=== PATIENT | female | born 1965 | race Caucasian/White ===

== ENCOUNTER → 2018-06-16 12:07 | Outpatient (CLI) | payer OTHER, BC, SELFPAY ==
--- NOTE | 2018-06-16 12:10 | BI_ITS ---
MAMMOGRAPHY - BILATERAL SCREENING REASON FOR EXAM: Female, 52 years old. Routine annual screening examination. PERTINENT HISTORY: Grandmother with breast cancer. TECHNIQUE: Digital bilateral breast ro (3D mammographic acquisition) in the CC and MLO projections. 2-D mediolateral oblique (MLO) and craniocaudad (CC) views of both breasts were obtained. CAD: Full Field Digital Mammography with Computer Added Detection was performed. COMPARISON: Comparison is made with prior examination dated September 16, 2016 and June 05, 2013. FINDINGS: Breast Composition: There are scattered areas of fibroglandular density. There are no dominant masses or suspicious calcifications. No other significant abnormalities are identified. There has been no significant change since the prior study. BI/SCREENING MAMM (CAD), BILAT IMPRESSION: Stable bilateral screening mammogram. Yearly follow-up mammogram recommended. (A) ASSESSMENT CATEGORY: BIRADS Category 1: Negative. A letter regarding these results will be sent to the patient by the facility within 30 days. Approximately 10% of breast cancers are not detected by mammography. A normal mammogram should not delay biopsy of a clinically suspicious abnormality. [id number] Electronically Signed: Sebas Cuellar MD at 14:09 EST Tel [phone], Service support ,
== END ==
PROVIDERS: Visit Provider Obstetrics & Gynecology
DX: Z12.31 Encounter for screening mammogram for malignant neoplasm of breast (principal)
CPT/HCPCS: 77063; 77067

== ENCOUNTER → 2018-07-20 16:09 | Outpatient (CLI) | payer OTHER, SELFPAY ==
[2018-07-20 17:45] LABS: Free T3 2.1 pg/mL (2.18-3.98); T4 Free Direct 0.94 ng/dL (0.76-1.46); Thyroid Stim Hormone (TSH) 2.61 uIU/mL (0.358-3.74)
== END ==
PROVIDERS: Family Provider Family Medicine; PCP Family Medicine; Referring Provider Obstetrics & Gynecology; Visit Provider Obstetrics & Gynecology
DX: F41.1 Generalized anxiety disorder (principal); E07.89 Other specified disorders of thyroid
CPT/HCPCS: 36415; 84439; 84443; 84481

== ENCOUNTER 2019-08-24 09:30 | Outpatient (RCR) | payer OTHER, SELFPAY ==
--- NOTE | 2019-08-02 11:45 | HP.PTEVAL ---
Patient's Visit Information SALAZAR HUSTON is a 53 year old F referred to Physical Therapy by Lee Le MD with a diagnosis of Left Plantar Fascitis. Date of Evaluation: 08/02/19 Physical Therapist: Lori Gambino DPT - Visit Plan Frequency: 2x /Week Duration: 4 Weeks Plan: Focus on decreasing inflammation- add in eccentrics and stretching - Subjective Findings: Left plantar fascitis- it has been years more in the arch and she was able to deal with it- good shoes and inserts. After March the pain moved to the heel and is pretty much constant now. She does not usually wake up with pain- does not wear night splints but she uses the footboard of her bed. Wednesday she took the dog for a walk then she was done for the day. Pain is located in the heel and if she exercises then get stiffness in the achilles tendon and lower calf- rolls it out and it helps. Does not have any arch pain. Describes the pain as sharp and shooting in the heel. Worst: 8/10 Agg: being up on it, being active, standing. Eases: roller, rest. Best: 0/10 in the morning when she gets up- depending on what she did the day before. No N/T. Does have hip pain on the right side- based on activtiy level but no changes. Most of the time she is an [employer]- over the counter inserts. Dr. Le sent her to [facility]- is using a heel cup and that makes it better a little bit. Was diagnosed with a high arch by the person at [facility]. Athletic shoe is a [employer]- but also wears the inserts. 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 Has not had injections in her foot. Was given a steriod dose pack for a sinus infection and it made her feel better. PMHx: none Meds: anxiety med PRN- thinks its effexor - Objective Posture: FH, RS- can correct but does not maintain. Gait: no deviation noted- good heel/toe pattern- does have a slightly high arch. HR/TR: able with pain using TR. SLS: 15 sec no LOB. Observation: high arch- mild hindfoot valgus. ROM: DF: 8 degrees, PF: 60 degrees, Ever: 40 degrees, Inver: 30 degrees. Strength: 5/5 throughout LE. Flex: HS: moderate, Gastroc: severe, SOlues: moderate. Palpation: tender along heel and achilles - Goals Goal 1:: Patient will be I with HEP and progression Goal Time Frame: 4-6 Weeks Goal 2:: Patient will demo mild restriction in her gastroc/solues complex Goal Time Frame: 4-6 Weeks Goal 3:: Patient will report 0/10 pain with ADL's and recreational activities Goal Time Frame: 4-6 Weeks - Rehabilitation Potential Physical Therapy Diagnosis: Patient presents with hypomobility- she has decreased increased inflammation and decreased flexibiilty in the left LE leading to increased pain with ADL's. Rehabilitation Potential: Fair - Anticipated Interventions Patient/Client Instruction: Educate patient on: Benefits of Fitness Program Therapeutic Exercise to Include: Strength training, Endurance training, Balance training, Agility training, Body mechanics, Flexibilty training, Passive ROM, Active ROM, Dynamic Lumbar Stabilization For the Purpose of:: To improve muscle performance and motor function TENS: Yes Cryotherapy (ice pack, ice massage): Yes Thermo therapy (hot pack): Yes Ultrasound (thermal/non thermal): Yes Thank you for the opportunity to evaluate your patient. For Medicare and Medicare HMO plans, please review the plan of care and approve it. It will need to be FAXED BACK to us at [phone] for Medicare purposes. For Medicare only, by signing this I certify the plan of care. Please let me know if there are questions or concerns regarding this plan of care. Physician Signature: Date:
--- NOTE | 2019-10-17 10:27 | HP.PT.NRP ---
SALAZAR HUSTON was seen in my office for initial evaluation on 08/02/19. The following Plan of Care was established for this patient: Initial Frequency: 2x /Week Initial Duration: 4 Weeks Patient/Client Instruction: Educate patient on: Benefits of Fitness Program Therapeutic Exercise to Include: Strength training, Endurance training, Balance training, Agility training, Body mechanics, Flexibilty training, Passive ROM, Active ROM, Dynamic Lumbar Stabilization For the Purpose of:: To improve muscle performance and motor function TENS: Yes Cryotherapy (ice pack, ice massage): Yes Thermo therapy (hot pack): Yes Ultrasound (thermal/non thermal): Yes This patient was last seen in our office . Pertinent comments regarding their Physical therapy will appear below: Patient attempted HEP and has not called with questions- appropriate for d/c. At this point I will be discontinuing this patient from physical therapy. I would be happy to see this patient again in the future if found appropriate by the physician. Thank you! Lori Gambino DPT
== END 2019-08-24 19:00 | disposition home or self-care (01) ==
LOC: PT 09:30
PROVIDERS: PCP Family Medicine; Referring Provider Orthopaedic Surgery; Visit Provider Orthopaedic Surgery
DX: Q66.72 Congenital pes cavus, left foot (principal); M72.2 Plantar fascial fibromatosis
CPT/HCPCS: 97035; 97110; 97140; 97161

== ENCOUNTER 2020-08-22 14:38 | Outpatient (RCR) | payer OTHER, SELFPAY ==
[2020-08-22] MEDS: COVID-19 VACC, MRNA(PFIZER)/PF 30 MCG/0.3 ML SYRINGE IM (08:34)
[2020-09-12] MEDS: COVID-19 VACC, MRNA(PFIZER)/PF 30 MCG/0.3 ML SYRINGE IM (08:27)
== END 2020-08-22 23:59 ==
LOC: IMMUN 14:38
PROVIDERS: PCP Family Medicine; Visit Provider Family Medicine
DX: Z23 Encounter for immunization (principal)
CPT/HCPCS: 0001A; 0002A; 91300

== ENCOUNTER → 2020-09-27 11:42 | Outpatient (CLI) | payer OTHER, SELFPAY ==
[2020-09-27 12:41] LABS: Absolute Lymphocyte Count 2.09 X10^3/uL (0.83-4.51); Absolute Neutrophil Count 2.8 X10^3/uL (2.0-7.7); Basophil# 0.03 X10^3/uL; Basophil% 0.5 % (0-1); Eosinophil# 0.06 X10^3/uL; Eosinophils% 1.1 % (0-5); Hematocrit 46.6 % (37-47); Hemoglobin 14.6 g/dL (12.0-15.0); Lymphocyte # 2.09 X10^3/ul (0.83-4.51); Lymphocyte % 37.5 % (19-41); Mean Corp Hgb Conc 31.3 g/dL (32-36); Mean Corpuscular Volume 95.9 fL (81-99); Mean Platelet Vol. 10.9 fl (6.2-12.0); Monocyte# 0.63 X10^3/uL; Monocyte% 11.3 % (0-10); NRBC Flagged by Analyzer 0 % (0-5); Neutrophil # 2.76 X10^3/uL (2.7-7.7); Neutrophil % 49.6 % (47-70); Platelet Count 243 K/mm3 (150-450); RBC Distribution Width CV 13.9 % (11.6-14.6); RBC Distribution Width SD 49.8 fl (35.1-43.9); Red Blood Count 4.86 M/mm3 (4.2-5.4); White Blood Count 5.6 K/mm3 (4.4-11.0)
[2020-09-27 13:42] LABS: ALB/GLOB Ratio 1.1 RATIO (0.9-2.4); AST(SGOT) 15 U/L (15-37); Alanine Aminotransfer ALT/SGPT 20 U/L (13-56); Alkaline Phosphatase 76 U/L (45-117); Anion Gap 4 (5-15); BUN 13 mg/dL (7-18); BUN/Creat Ratio 15.4 RATIO (10-20); Calcium,Total 9.1 mg/dL (8.5-10.1); Chloride 103 mmol/L (98-107); Cholesterol 247 mg/dL (200); Creatinine, Serum 0.85 mg/dL (0.55-1.02); EST Glomerular Filtration Rate 74 mL/min (>60); Est Glom Filt Rate - Afr Amer 90 mL/min (>60); Globulin 3.8 g/dL (2.2-4.2); Glucose 90 mg/dL (74-106); High Density Lipoprotein 77 mg/dL; Potassium 4.1 mmol/L (3.5-5.1); Protein, Total 7.8 g/dL (6.4-8.2); Sodium Level 137 mmol/L (136-145); Thyroid Stim Hormone (TSH) 5.64 uIU/mL (0.358-3.74); Triglycerides 99 mg/dL; Very Low Density Lipoprotein 20 mg/dL (5-40)
== END ==
PROVIDERS: PCP Family Medicine; Referring Provider Family Medicine; Visit Provider Family Medicine
DX: Z00.00 Encounter for general adult medical examination without abnormal findings (principal); F32.9 Major depressive disorder, single episode, unspecified; R53.83 Other fatigue
CPT/HCPCS: 36415; 80053; 80061; 84443; 85025

== ENCOUNTER → 2020-10-15 15:34 | Outpatient (CLI) | payer OTHER, SELFPAY ==
--- NOTE | 2020-10-15 15:36 | BI_ITS ---
MAMMOGRAPHY - BILATERAL SCREENING REASON FOR EXAM: Female, 54 years old. Routine annual screening examination. PERTINENT HISTORY: Grandmother with breast cancer. TECHNIQUE: Digital bilateral breast suzy (3D mammographic acquisition) in the CC and MLO projections. 2-D mediolateral oblique (MLO) and craniocaudad (CC) views of both breasts were obtained. CAD: Full Field Digital Mammography with Computer Added Detection was performed. COMPARISON: Comparison is made with prior study dated 06/16/2018 and 09/16/2016. FINDINGS: Breast Composition: There are scattered areas of fibroglandular density. There are no dominant masses or suspicious calcifications. No other significant abnormalities are identified. There has been no significant change since the prior study. BI/SCRN MAMM (CAD)W/SUZY BILAT IMPRESSION: Stable bilateral screening mammogram. Yearly follow-up mammogram recommended. (A) ASSESSMENT CATEGORY: BIRADS Category 1: Negative. A letter regarding these results will be sent to the patient by the facility within 30 days. Approximately 10% of breast cancers are not detected by mammography. A normal mammogram should not delay biopsy of a clinically suspicious abnormality. [id number] Electronically Signed: Sebas Cuellar MD at 8:33 EDT , Service support ,
--- NOTE | 2020-10-15 15:56 | BD_ITS ---
STUDY: DUAL ENERGY X-RAY ABSORPTIOMETRY / DXA REASON FOR EXAM: Female, 54 years old. 733.00OsteoporosisBONE DENSITY REASON FOR EXAM TECHNIQUE: Bone Mineral Density (BMD) measurements of lumbar spine and bilateral hips were obtained. COMPARISON: None. FINDINGS: Lumbar Spine (L1-L4): g/cm2 (1.277) / T-score (0.8) / Z-score (1.6) Findings are suggestive of normal bone density with a low fracture risk. Left Femur Total: g/cm2 (0.979) / T-score (-0.2) / Z-score (0.4) Left Femoral Neck: g/cm2 (0.963) / T-score (-0.5) / Z-score (0.5) Right Femur Total: g/cm2 (0.955) / T-score (-0.4) / Z-score (0.2) Right Femoral Neck: g/cm2 (0.915) / T-score (-0.9) / Z-score (0.1) BD/Dexa Bone Density Study IMPRESSION: The patient is considered normal as outlined below according to World Anant Organization (WHO) criteria with a low fracture risk. Reference Information: The T-score is the number of standard deviations above or below the standard which is normal for young adults at their peak bone mineral density. The World Health Organization (WHO) interprets the T-scores as follows: Above -1 Normal bone density Between -1 and -2.5 Osteopenia Equal to / or below -2.5 Osteoporosis As a practical clinical guideline, osteopenia may be graded as follows: Mild -1 through -1.5 Moderate -1.6 through -2.0 Severe -2.1 through -2.4 The Z-score is the number of standard deviations above or below age-matched controls. A Z-score of less than -1.5 would be considered abnormal. References: 1. NIH Osteoporosis and Related Bone Diseases www osteo.org 2. International Society for Clinical Densitometry www iscd.org 3. National Osteoporosis Foundation www nof.org Electronically Signed: Sebas Cuellar MD at 14:55 EDT , Service support ,
== END ==
PROVIDERS: PCP Family Medicine; Referring Provider Family Medicine; Visit Provider Family Medicine
DX: N95.1 Menopausal and female climacteric states (principal); Z12.31 Encounter for screening mammogram for malignant neoplasm of breast; Z82.62 Family history of osteoporosis
CPT/HCPCS: 77063; 77067; 77080

== ENCOUNTER → 2020-11-23 10:40 | Outpatient (CLI) | payer OTHER, SELFPAY ==
[2020-11-23 11:35] LABS: T4 Free Direct 1.05 ng/dL (0.76-1.46); Thyroid Stim Hormone (TSH) 3.18 uIU/mL (0.358-3.74)
== END ==
PROVIDERS: PCP Family Medicine; Referring Provider Family Medicine; Visit Provider Family Medicine
DX: E03.9 Hypothyroidism, unspecified (principal)
CPT/HCPCS: 36415; 84439; 84443

== ENCOUNTER → 2021-01-24 11:07 | Outpatient (CLI) | payer OTHER, SELFPAY ==
[2021-01-24 12:06] LABS: T4 Free Direct 1.11 ng/dL (0.76-1.46); Thyroid Stim Hormone (TSH) 1.71 uIU/mL (0.358-3.74)
== END ==
PROVIDERS: PCP Family Medicine; Visit Provider Family Medicine
DX: E03.9 Hypothyroidism, unspecified (principal)
CPT/HCPCS: 36415; 84439; 84443

== ENCOUNTER → 2021-10-17 | Outpatient (CLI) | payer OTHER, SELFPAY ==
--- NOTE | 2021-10-17 08:06 | BI_ITS ---
MAMMOGRAPHY - BILATERAL SCREENING REASON FOR EXAM: Female, 55 years old. Routine annual screening examination. PERTINENT HISTORY: Grandmother with breast cancer. TECHNIQUE: Digital bilateral breast suzy (3D mammographic acquisition) in the CC and MLO projections. 2-D mediolateral oblique (MLO) and craniocaudad (CC) views of both breasts were obtained. CAD: Full Field Digital Mammography with Computer Added Detection was performed. COMPARISON: Comparison is made with prior study dated 10/15/2020 and 06/16/2018. FINDINGS: Breast Composition: There are scattered areas of fibroglandular density. There are no dominant masses or suspicious calcifications. No other significant abnormalities are identified. There has been no significant change since the prior study. BI/SCRN MAMM (CAD)W/SUZY BILAT IMPRESSION: Stable bilateral screening mammogram. Yearly follow-up mammogram recommended. (A) ASSESSMENT CATEGORY: BIRADS Category 1: Negative. A letter regarding these results will be sent to the patient by the facility within 30 days. Approximately 10% of breast cancers are not detected by mammography. A normal mammogram should not delay biopsy of a clinically suspicious abnormality. [id number] Electronically Signed: Sebas Cuellar MD at 8:51 EDT ,
== END | disposition home or self-care (01) ==
LOC: OPBI 08:04
PROVIDERS: PCP Family Medicine; Visit Provider Family Medicine
DX: Z12.31 Encounter for screening mammogram for malignant neoplasm of breast (principal)
CPT/HCPCS: 77063; 77067

== ENCOUNTER → 2022-10-02 | Outpatient (CLI) | payer OTHER, SELFPAY ==
[2022-10-02 12:14] LABS: Absolute Lymphocyte Count 1.23 X10^3/uL (0.83-4.51); Absolute Neutrophil Count 2.1 X10^3/uL (2.0-7.7); Basophil# 0.04 X10^3/uL; Eosinophil# 0.06 X10^3/uL; Eosinophils% 1.5 % (0-5); Hematocrit 40.2 % (37-47); Hemoglobin 12.4 g/dL (12.0-15.0); Lymphocyte # 1.23 X10^3/ul (0.83-4.51); Lymphocyte % 31.6 % (19-41); Mean Corp Hgb Conc 30.8 g/dL (32-36); Mean Corpuscular Hgb 27.2 pg (27.0-32.0); Mean Corpuscular Volume 88.2 fL (81-99); Mean Platelet Vol. 11.5 fl (6.2-12.0); Monocyte# 0.48 X10^3/uL; Monocyte% 12.3 % (0-10); NRBC Flagged by Analyzer 0 % (0-5); Neutrophil # 2.07 X10^3/uL (2.7-7.7); Neutrophil % 53.3 % (47-70); Platelet Count 230 K/mm3 (150-450); RBC Distribution Width CV 15.8 % (11.6-14.6); Red Blood Count 4.56 M/mm3 (4.2-5.4); White Blood Count 3.9 K/mm3 (4.4-11.0)
[2022-10-02 12:37] LABS: Vitamin D,25 Hydroxy 34.8 ng/mL
[2022-10-02 12:49] LABS: AST(SGOT) 20 U/L (15-37); Alanine Aminotransfer ALT/SGPT 26 U/L (13-56); Albumin, Serum 3.9 g/dL (3.2-5.0); Alkaline Phosphatase 83 U/L (45-117); Anion Gap 2 (5-15); BUN 14 mg/dL (7-18); BUN/Creat Ratio 14.4 RATIO (10-20); Calcium,Total 9.1 mg/dL (8.5-10.1); Chloride 106 mmol/L (98-107); Cholesterol 211 mg/dL (200); Creatinine, Serum 0.97 mg/dL (0.55-1.02); EST Glomerular Filtration Rate 63 mL/min (>60); Est Glom Filt Rate - Afr Amer 76 mL/min (>60); Ferritin 5 ng/mL (8-252); Globulin 3.9 g/dL (2.2-4.2); Glucose 85 mg/dL (74-106); High Density Lipoprotein 76 mg/dL; Potassium 4.4 mmol/L (3.5-5.1); Protein, Total 7.8 g/dL (6.4-8.2); Sodium Level 137 mmol/L (136-145); Thyroid Stim Hormone (TSH) 1.66 uIU/mL (0.358-3.74); Triglycerides 65 mg/dL; Very Low Density Lipoprotein 13 mg/dL (5-40)
== END | disposition home or self-care (01) ==
LOC: BFHLAB 09:25
PROVIDERS: PCP Family Medicine; Referring Provider Family Medicine; Visit Provider Family Medicine
DX: Z00.00 Encounter for general adult medical examination without abnormal findings (principal); E03.9 Hypothyroidism, unspecified; D64.9 Anemia, unspecified; E55.9 Vitamin D deficiency, unspecified
CPT/HCPCS: 36415; 80053; 80061; 82306; 82728; 84443; 85025

== ENCOUNTER → 2022-10-20 | Outpatient (CLI) | payer OTHER, SELFPAY ==
--- NOTE | 2022-10-20 10:06 | BI_ITS ---
MAMMOGRAPHY - BILATERAL SCREENING REASON FOR EXAM: Female, 56 years old. Routine annual screening examination. PERTINENT HISTORY: Grandmother with breast cancer. TECHNIQUE: Digital bilateral breast suzy (3D mammographic acquisition) in the CC and MLO projections. 2-D mediolateral oblique (MLO) and craniocaudad (CC) views of both breasts were obtained. CAD: Full Field Digital Mammography with Computer Added Detection was performed. COMPARISON: Comparison is made with prior examination dated October 17, 2021 and October 15, 2020. FINDINGS: Breast Composition: There are scattered areas of fibroglandular density. There are no dominant masses or suspicious calcifications. No other significant abnormalities are identified. There has been no significant change since the prior study. BI/SCRN MAMM (CAD)W/SUZY BILAT IMPRESSION: Stable bilateral screening mammogram. Yearly follow-up mammogram recommended. (A) ASSESSMENT CATEGORY: BIRADS Category 1: Negative. A letter regarding these results will be sent to the patient by the facility within 30 days. Approximately 10% of breast cancers are not detected by mammography. A normal mammogram should not delay biopsy of a clinically suspicious abnormality. [id number] Electronically Signed: Sebas Cuellar MD at 11:03 EDT ,
== END | disposition home or self-care (01) ==
LOC: OPBI 10:05
PROVIDERS: PCP Family Medicine; Referring Provider Family Medicine; Visit Provider Family Medicine
DX: Z12.31 Encounter for screening mammogram for malignant neoplasm of breast (principal)
CPT/HCPCS: 77063; 77067

== ENCOUNTER 2022-10-30 07:10 | Day surgery (SDC) | payer OTHER, SELFPAY ==
[2022-10-30] VITALS (7 sets, daily range): BP systolic 97–117; BP diastolic 68–83; PULSE 66–79; RESP 16; TEMP 36.1–36.4; O2SAT 100; BMI 28.5
[2022-10-30] MEDS: Lactated Ringers 1,000 ML 15 ML IV (07:49)
--- NOTE | 2022-10-30 08:30 | H&P.OPEN ---
[facility] - General General Date of Service: 10/30/22 Chief Complaint: Colon Cancer screening HPI Narrative SALAZAR HUSTON, is a 56 F who presents for screening colonoscopy. She confirms her preappointment questionnaire that she has not experienced any change in her bowel habits-and particularly denies any notice of blood. She has had prior colonoscopy, but states that this was well over [address] Westbrook. She is not entirely clear on the findings of this colonoscopy, but does deny any mention of diverticula or polyps. 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 She confirms a family history of colon issues with her father who required a operation, but she is wanting further details. Lastly she confirms that her prep was completed successfully and that her output is now clear. 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 Low iron Non-smoker Post-menopausal Sciatica, left side Vitamin D deficiency Wears glasses Home Medications escitalopram oxalate 10 mg tablet 10 mg PO DAILY 07/15/22 [History Last Taken Unknown] levothyroxine 75 mcg tablet (Synthroid) 75 mcg PO DAILY 07/15/22 [History Last Taken 10/30/22 75 mcg] cholecalciferol (vitamin D3) 25 mcg (1,000 unit) tablet 25 mcg PO DAILY 07/22/22 [History Last Taken Unknown] ferrous sulfate 325 mg (65 mg iron) tablet (Iron (ferrous sulfate)) 325 mg PO DAILY 10/09/22 [History Last Taken Unknown] Allergy/AdvReac Type Severity Reaction Status Date / Time codeine AdvReac Other Verified 10/26/22 13:09 Family History (Updated 10/09/22 @ 09:41 by Sapna Reardon) Mother Hypothyroidism Hypertension Pacemaker Brother Hypothyroidism Grandmother Abdominal aortic aneurysm Breast cancer Father Myocardial infarction, Onset Age: 70 CHF (congestive heart failure) Brother Ascending aortic aneurysm Surgical History (Updated 10/26/22 @ 13:18 by Nazanin Fuchs) History of colonoscopy History of root canal procedure History of tonsillectomy and adenoidectomy Hx of wisdom tooth extraction Social History (Updated 10/09/22 @ 09:42 by Sapna Reardon) household members: spouse and children current occupational status: employed 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 Smoking Status: Never smoker alcohol intake: current alcohol intake frequency: holidays/special occasions only substance use type: does not use caffeine: Yes Type: carbonated beverages and coffee Number of servings: 1 Past Medical/Surgical History Planned Operation Planned Operative Procedure/s: CSCOPE OA Previous Hospitalizations/Surgeries HX Hospitalizations: No Any Problems With Anesthesia: No You/Your Family Experience Fever (Hyperthermia) With Anes: No Cholinesterase deficiency: No Cardiovascular Hx Hypertension: No Respiratory Hx Sleep Apnea: No Hx Respiratory Tract Infection/Cold (presently): No Do You Snore Loudly (louder than talking or can be heard): Yes Do You Often Feel Tired/ Fatigued/ Sleepy Dring Daytime?: Yes Has Anyone Observed You Stop Breathing During Sleep?: No Result (for STOP score): Positive Smoking Status: Never smoker Neurological Does patient have nerve stimulator: No Reproduction : No Miscellaneous Recent Exposure to Contagious Disease: No Allergies codeine Adverse Reaction (Verified 10/26/22 13:09) Other Feel weird Discharge Is Pt Admitted From a Skilled Nursing, or a Care Home: No After D/C, Where Do you Plan to Go: Return Home Vital Signs Vital Signs Vital Signs: 10/30/22 07:43 10/30/22 07:43 Temperature 97.1 F L Temperature Source Temporal Pulse Rate 69 Respiratory Rate 16 Respiratory Pattern Normal Blood Pressure 117/83 H Blood Pressure Mean 94 Blood Pressure Source Monitor Blood Pressure Position Semi-Fowlers Blood Pressure Location Left Arm Pulse Ox 100 Oxygen Delivery Method Room Air Weight Weight: 166 lb 3.657 oz Body Mass Index (BMI) 28.5 Physical Exam Const alert, oriented x3 and no apparent distress General Appearance: cooperative and well kempt Resp normal respiratory effort GI GI Narrative: Nondistended, soft, mildly tender to palpation in the left lower quadrant and otherwise exam is benign Assessment & Plan Assessment/Plan (1) Encounter for screening for malignant neoplasm of colon: PLAN: Patient 56-year-old female who appears to be at average risk for colon cancer based on her history (there is some detail missing about possible colon issues in her father) with prior history of colonoscopy greater than 10 years ago who presents for update of her colon cancer screening without present bowel issues. She completed a prep in anticipation for today's procedure and given her prior experience has no further questions. She does not remarks that she has had some flare of chronic hemorrhoid issue and expresses her wish to have these hemorrhoids banded if deemed necessary. Consents have been addended to reflect this possibility. Proceed to the endoscopy suite for screening colonoscopy as scheduled. Surgery Risks - Colonoscopy Risks Include but are not Limited To: Risks include but are not limited to: Bleeding, perforation requiring further surgery, inability to complete colonoscopy requiring barium enema.
--- NOTE | 2022-10-30 09:16 | OP.COLON_ITS ---
Patient Name: Hannah James Procedure Date: 10/30/2022 8:22 AM Date of : 1965 Age: 56 Procedure: Colonoscopy Indications: Screening for colorectal malignant neoplasm Providers: Jona Vale MD Referring MD: Jona Vale MD Medicines: See the Anesthesia note for documentation of the administered medications Patient Profile: Refer to note in patient chart for documentation of history and physical. Last Colonoscopy: more than 10 years ago. Complications: No immediate complications. Estimated blood loss: None. Procedure: Pre-Anesthesia Assessment: - The heart rate, respiratory rate, oxygen saturations, blood pressure, adequacy of pulmonary ventilation, and response to care were monitored throughout the procedure. After I obtained informed consent, the scope was passed under direct vision. Throughout the procedure, the patient's blood pressure, pulse, and oxygen saturations were monitored continuously. The Colonoscope was introduced through the anus and advanced to the cecum, identified by the appendiceal orifice, ileocecal valve and palpation. The colonoscopy was performed without difficulty. The patient tolerated the procedure well. The quality of the bowel preparation was good. Scope In: 8:41:51 AM Scope Withdrawal Time 0 hours 15 minutes 20 seconds Scope Out: 9:06:30 AM Total Procedure Duration Time 0 hours 24 minutes 39 seconds Findings: Hemorrhoids were found on perianal exam. The entire examined colon appeared normal. Internal hemorrhoids were found during retroflexion. The hemorrhoids were Grade I (internal hemorrhoids that do not prolapse). No biopsies or other specimens were collected for this exam. Impression: - Hemorrhoids found on perianal exam. - The entire examined colon is normal. - Internal hemorrhoids. No specimens collected. Recommendation: - Repeat colonoscopy in 10 years for screening purposes. - Continue present medications. Procedure Code(s): --- Professional --- G0121, Colorectal cancer screening; colonoscopy on individual not meeting criteria for high risk Diagnosis Code(s): --- Professional --- Z12.11, Encounter for screening for malignant neoplasm of colon K64.0, First degree hemorrhoids CPT copyright 2017 [employer]. All rights reserved. The codes documented in this report are preliminary and upon blending line attendant review may be revised to meet current compliance requirements. Jona Vale MD 10/30/2022 9:15:57 AM This report has been signed electronically. Number of Addenda: 0 Note Initiated On: 10/30/2022 8:22 AM
--- NOTE | 2022-10-30 09:17 | OP.CCLET_ITS ---
10/30/2022 Marleni De Los Santos [facility] [address] [address] Re : Colonoscopy procedure for Hannah James Dear Dr. De Los Santos This procedure was performed on Sunday, October 30, 2022. My impressions and recommendations are as follows: Impressions : - Hemorrhoids found on perianal exam. - The entire examined colon is normal. - Internal hemorrhoids. No specimens collected. Recommendations : - Repeat colonoscopy in 10 years for screening purposes. - Continue present medications. My findings are described in the full procedure note, which is enclosed. If I can be of further assistance, please feel free to contact me at Doctor phone number(s): , Work: . Sincerely, Jona Vale MD 10/30/2022 9:15:57 AM This report has been signed electronically.
== END 2022-10-30 10:10 | disposition home or self-care (01) ==
LOC: EN 07:11 → AC 07:13
PROVIDERS: PCP Family Medicine; Referring Provider Surgery; Visit Provider Surgery
PROC: 0DJD8ZZ Inspection of Lower Intestinal Tract, Via Natural or Artificial Opening Endoscopic (ICD-10-PCS; CPT 45378; principal; 2022-10-30 08:25)
DX: Z12.11 Encounter for screening for malignant neoplasm of colon (principal); K64.0 First degree hemorrhoids; E06.3 Autoimmune thyroiditis; Z79.890 Hormone replacement therapy; Z87.19 Personal history of other diseases of the digestive system
CPT/HCPCS: 45378; J2405

== ENCOUNTER 2022-11-20 13:00 | Emergency (ER) | payer OTHER, SELFPAY ==
[2022-11-20 13:02] VITALS: BP 141/76; PULSE 66; RESP 18; TEMP 35.9; O2SAT 99; BMI 30.3
--- NOTE | 2022-11-20 13:27 | CT_ITS ---
STUDY: CT BRAIN WITHOUT CONTRAST REASON FOR EXAM: Female, 56 years old. Head injury due to a fall. No loss of consciousness. RADIATION DOSAGE (If Supplied By Facility): CTDIvol = ( 44.99 ) mGy, DLP = ( 812.98 ) mGycm TECHNIQUE: Transaxial CT imaging of the brain was performed without administration of intravenous contrast material. Individualized dose optimization techniques were used for this CT. COMPARISON: No relevant priors. FINDINGS: Normal soft tissue structures. Normal calvarium. Normal size ventricles and extra-axial spaces for the patient''s age. Normal white matter tracts of the cerebral hemispheres. Normal basal ganglia and thalami. Normal brainstem. Normal cerebellum. There is no intracranial hemorrhage. There are no findings of an acute ischemic infarction. Normal visualized paranasal sinuses. CT/Brain/Head without Contrast IMPRESSION: Normal unenhanced CT scan of the brain. Electronically Signed: Sebas Cuellar MD at 14:03 EDT ,
--- NOTE | 2022-11-20 13:27 | CT_ITS ---
STUDY: CT CERVICAL SPINE WITHOUT CONTRAST REASON FOR EXAM: Female, 56 years old. Injury/Pain RADIATION DOSAGE (If Supplied By Facility): CTDIvol = ( 16.37 ) mGy, DLP = ( 307.68 ) mGycm TECHNIQUE: High resolution transaxial imaging was performed without contrast material. Sagittal and coronal images were reconstructed. Individualized dose optimization techniques were used for this CT. COMPARISON: None FINDINGS: Normal craniovertebral junction. Normal anterior atlantoaxial articulation. Normal odontoid process. There is straightening of the normal cervical lordosis. Normal vertebral bodies and posterior osseous elements. C2-3: Right-sided posterior spondylosis. This causes minimal deformity of the right side of the thecal sac. C3-4: Mild degree of disc space narrowing. Right-sided posterior spondylosis. This causes deformity of the thecal sac on the right side. C4-5: Mild degree of disc space narrowing. Spondylosis. Uncovertebral arthrosis. Mild degree of bilateral neural foraminal stenosis. C5-6: Moderate degree of disc space narrowing. Uncovertebral arthrosis. Mild to moderate degree of right neural foraminal stenosis. Asymmetrical spondylosis on the right side causing deformity of thecal sac. C6-7: Moderate degree of disc space narrowing and spondylosis. No evidence of stenosis. C7-T1: Normal endplates. Normal disc height and morphology. Normal central canal and intervertebral neuroforamina. Normal visualized soft tissue structures. CT/Spine Cervical without Contras IMPRESSION: Multilevel degenerative changes, as described above. Electronically Signed: Sebas Cuellar MD at 14:05 EDT ,
--- NOTE | 2022-11-20 13:27 | EDS_ITS ---
HPI HPI - Fall History of Present Illness Chief Complaint: Head Injury Informant: patient Occured/Mechanism Occurred: Today Mechanism/Context: Yes same level fall Usually ambulates: Without assistance Pain/Injury Location: Occipital scalp Pain Location: head Quality of Pain: Aching, Burning and Stabbing Worsened by: Movement Relieved by: Nothing Associated Symptoms Associated Symptoms: Positive for Parasthesias; Negative for Weakness, Loss of function, Loss of consciousness or Amnesia Narrative Narrative: Patient presents with head injury that began after a fall today. Patient states she was taking pictures and was walking backwards. Patient states she fell backwards and hit her head on concrete steps. Patient denies any loss of consci ousness. Patient states she did not pass out. Patient describes her pain as burning, stabbing, and aching. Patient states it is over the occipital scalp and into her neck. Patient states it is worse with movement. Patient admits to some tingling in her fingers of both hands. Patient denies any weakness. Patient denies any other injuries. 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 Low iron Non-smoker Post-menopausal Sciatica, left side Vitamin D deficiency Wears glasses Home Medications escitalopram oxalate 10 mg tablet 10 mg PO DAILY 07/15/22 [History Last Taken Unknown] levothyroxine 75 mcg tablet (Synthroid) 75 mcg PO DAILY 07/15/22 [History Last Taken 10/30/22 75 mcg] cholecalciferol (vitamin D3) 25 mcg (1,000 unit) tablet 25 mcg PO DAILY 07/22/22 [History Last Taken Unknown] ferrous sulfate 325 mg (65 mg iron) tablet (Iron (ferrous sulfate)) 325 mg PO DAILY 10/09/22 [History Last Taken Unknown] Allergy/AdvReac Type Severity Reaction Status Date / Time codeine AdvReac Other Verified 10/26/22 13:09 Family History (Updated 10/09/22 @ 09:41 by Sapna Reardon) Mother Hypothyroidism Hypertension Pacemaker Brother Hypothyroidism Grandmother Abdominal aortic aneurysm Breast cancer Father Myocardial infarction, Onset Age: 70 CHF (congestive heart failure) Brother Ascending aortic aneurysm Surgical History History of colonoscopy History of root canal procedure History of tonsillectomy and adenoidectomy Hx of wisdom tooth extraction Social History household members: spouse and children current occupational status: employed 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 Smoking Status: Never smoker alcohol intake: current alcohol intake frequency: holidays/special occasions only substance use type: does not use caffeine: Yes Type: carbonated beverages and coffee Number of servings: 1 ROS ROS ED Constitutional Constitutional ED: Reports chills and subjective; Denies fever(s) Eyes Eyes: Denies blurry vision or change in vision ENT ENT ED: Denies rhinorrhea or sore throat Cardiovascular Cardiovascular: Denies chest pain or palpitations Respiratory/Chest Respiratory/Chest: Denies cough or dyspnea Gastrointestinal Gastrointestinal: Denies nausea or vomiting Genitourinary Genitourinary ED: Denies dysuria or hematuria Musculoskeletal Musculoskeletal: Reports neck pain; Denies back pain Integumentary Denies abscess or rash Neurologic Neurologic: Reports headache(s); Denies weakness Allergic/Immunologic Allergic/Immunologic ED: Denies mouth swelling or urticaria EXAM Physical Exam Const Vital Signs: 11/20/22 13:02 11/20/22 13:30 11/20/22 13:30 Temperature 96.7 F L Temperature Source Temporal Pulse Rate 66 66 Respiratory Rate 18 18 Respiratory Effort Normal Blood Pressure 141/76 H 129/77 H Blood Pressure Mean 97 94 Pulse Ox 99 100 Oxygen Delivery Method Room Air Room Air Room Air 11/20/22 15:06 Temperature Temperature Source Pulse Rate 64 Respiratory Rate 15 Respiratory Effort Blood Pressure 124/75 H Blood Pressure Mean 91 Pulse Ox 99 Oxygen Delivery Method Room Air Positive well nourished and well developed General Appearance ED: well developed and NAD HEENT HEENT Narrative: There is tenderness over the occipital scalp. There is dried blood noted. trauma Eyes PERRL and EOMs intact bilaterally Back/Spine Back/Spine Narrative: There is tenderness over the upper cervical spine and cervical paraspinal muscles. There is no bony crepitance or step-off. Cervical collar was in place. Cervical Spine: cervical spine tenderness Cervical Spine Tenderness Details: C1, C2, C3 and C4 Neuro oriented x3, CN's II-XII intact bilaterally, moves all extremities, no focal motor deficits and no sensory deficits noted Stephen Coma Scale: document GCS findings Spontaneous Obeys Commands Oriented 15 Sensorium / Orientation: alert Sensory Exam: sensory level loss detected Psych mental status grossly normal and thought process normal Skin Skin Narrative: After removal of the cervical collar, the occipital scalp was examined more closely. There is no laceration. There is a superficial abrasion and soft tissue swelling over the occipital scalp. There is no bleeding. There is no bony crepitance or step-off. MDM MDM MDM Narrative Medical decision making narrative: Differential diagnosis includes scalp laceration, closed head injury, intracranial bleeding, skull fracture, and cervical spine fracture. CT scan of the brain will be obtained to assess for intracranial bleeding and skull fracture. CT scan of the cervical spine will be obtained to assess for cervical spine fracture. Radiography Diagnostic Testing: Clinical Impression(s) from Imaging Studies Brain CT 11/20/22 13:27 IMPRESSION: Normal unenhanced CT scan of the brain. Electronically Signed: Sebas Cuellar MD at 14:03 EDT , Cervical Spine CT 11/20/22 13:27 IMPRESSION: Multilevel degenerative changes, as described above. Electronically Signed: Sebas Cuellar MD at 14:05 EDT , CT scan of the brain was obtained. There is no acute intracranial abnormality. This was interpreted by the radiologist and was also independently reviewed by myself. CT scan of the cervical spine was obtained. There are some degenerative changes. There is no acute fracture or spondylolisthesis. This was interpreted by the radiologist and was also independently reviewed by myself. Treatment and Re-Evaluation Narrative: Patient was given a tetanus booster. The wound was cleaned. There is no actual laceration noted. There is a large abrasion. There is no active bleeding. There is no gapping of the wound margins. There is nothing needing suture repair. Patient was advised of this. Patient was given head injury instructions. Patient was instructed use ice to the area. Patient was instructed to follow-up with her primary care physician in 5 to 7 days. Patient understood and was agreeable with the plan. All questions were answered. Discharge Plan Triage Chief Complaint: Head Injury Other Complaint: Fall ED Provider: Jonathan Gold Dx/Rx/DC Orders Clinical Impression: Concussion, Fall Instructions: ED Concussion Prescriptions: No Action cholecalciferol (vitamin D3) 25 mcg (1,000 unit) tablet 25 mcg PO DAILY escitalopram oxalate 10 mg tablet 10 mg PO DAILY levothyroxine [Synthroid] 75 mcg tablet 75 mcg PO DAILY ferrous sulfate [Iron (ferrous sulfate)] 325 mg (65 mg iron) tablet 325 mg PO DAILY Primary Care Provider: Marleni De Los Santos Referrals: Marleni De Los Santos MD [Primary Care Provider] - 5-7 Days Disposition Disposition: Home, Self Care
[2022-11-20 13:30] VITALS: BP 129/77; PULSE 66; RESP 18; O2SAT 100
[2022-11-20] MEDS: Diphth,Pertuss(Acell),Tet Vac 0.5 ML Vial IM (14:09)
[2022-11-20 15:06] VITALS: BP 124/75; PULSE 64; RESP 15; O2SAT 99
[2022-11-20] MEDS: Lidocaine 1% (20 ml mdv) 20 ML Vial INFILT (15:13)
--- NOTE | 2022-11-20 15:56 | ED.RN ---
[facility], zuleyma reports she will be in to screen pt.
[2022-11-20 15:59] VITALS: BP 119/67; PULSE 66; RESP 14; O2SAT 99
== END 2022-11-20 16:21 | disposition home or self-care (01) ==
PROVIDERS: Emergency Provider Emergency Medicine; PCP Family Medicine; Visit Provider Emergency Medicine
DX: S06.0X0A Concussion without loss of consciousness, initial encounter (principal); W01.0XXA Fall on same level from slipping, tripping and stumbling without subsequent striking against object, initial encounter; Z23 Encounter for immunization
CPT/HCPCS: 70450; 72125; 90715; 99284

== ENCOUNTER 2023-02-01 11:30 | Outpatient (RCR) | payer OTHER, SELFPAY ==
--- NOTE | 2022-12-10 11:34 | HP.PTEVAL_ITS ---
Patient's Visit Information Visit Information Visit Information: SALAZAR HUSTON is a 57 year old F referred to Physical Therapy by FIDEL Garcia with a diagnosis of Concussion. Date of Evaluation: 12/10/22 Physical Therapist: PRISCILLA Lemon Visit Plan Frequency: 2-3x /Week Duration: 6 Weeks Plan: 2-3X/ week for 6 weeks for sitting to standing and then dynamic VOR (smooth pursuit and head and eyes move together), vestibular inputs, balance with HEP...May look into BPPV if symptoms become more positional/directional HEP: smooth pursuit both vertical and horizontal and then head and eyes move together in SITTING.... pt to start with one set several times a day and then progress to 2 sets Subjective Subjective: Pt fell November 20 and hit the back of her head and got a concussion falling BW off the stairs and hit the concrete. She does not remember hitting her head but remembers being at a 45 degrees angle and frozen and could not talk for a brief little bit and then she came out of that. She works at the [employer]. She is on vacation this week. She is limiting her screen time. She can get overwhelmed if she is doing a lot. The screens do not bother her unless she is on them a lot and then she will get a little bit of a BURDICK (generally lasts approx and hour once she stops). Lights do bother her at times at well. Loud noises bother her. This was at work. When she is laying in bed and change positions she gets dizzy. She feels a little bit spinny (lasts a few seconds). She always sits up to her L. When she sits up from laying down in bed she gets spinning dizzy and it lasts for about 10 seconds. She tried going up on her R side and it was worse on the R than the L. She does get up slowly to make sure she does not fall. She gets a little dizzy here or there. She has an overall lightheadedness that is generally there. She does have ear or eye pressure. She is limiting what she is doing so she does not get BURDICK a lot. She feels that she is progressivly getting better. She is not on any pain meds and not on any dizzy meds. She is taking vitamin D and started vitamin C and Tumeric. 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 She can do about 6 hours into her day and she done. She has no pain but a little dizziness. Takes her a while to fall asleep but once she does she is able to sleep. She feels that her balance is fine. Objective Objective: dizziness currently 1-07/17 biceps 1+/3 C-spine AROM: flex 100%, ext 50%, Rot B 90%, SB B 75%... no pain UE AROM WFL as well as UE strength WFL Sitting Smooth pursuit horizontal X 10 seconds and increase in BURDICK (did well up until about 10 seconds and then not able to track as well) Sitting Smooth pursuit vertical (hard to track looking down...over shoots following the pen when looking down with a tad bit increase in BURDICK) Sitting head and eyes move together horizontal X 30 seconds (dizziness remains the same and BURDICK remains the same ..dull ache). Sitting head and eyes move together vertical X 30 seconds (increase dizziness and BURDICK/pressure remains the same.... hard for her to track vertical. Was nauseated after doing all the above.... sat in dark X 5 min and felt better with just a little increase in pressure in the head afterwards CATSIB NT today Balance/Special Test Scores Dizziness Score: 18 Goals Goal 1:: I HEP Goal Time Frame: 8-12 Weeks Goal 2:: Be able to score normal on the CATSIB Goal Time Frame: 8-12 Weeks Goal 3:: Be able to walk with head turns without feeling dizzy or nauseated/BURDICK Goal Time Frame: 8-12 Weeks Goal 4:: Be able to complete VOR (smooth pursuit and head and eyes together in standing X 30 seconds without any increase in BURDICK or dizziness Goal Time Frame: 8-12 Weeks Goal 5:: Be able to roll R and L in bed without having dizziness Rehabilitation Potential Rehabilitation Potential: Good Anticipated Interventions Patient/Client Instruction: Educate patient on: Condition and Plan of Care For the Purpose of:: To decrease pain, To improve nutrient delivery to tissue, To improve muscle performance and motor function, To improve ability to perform ADL's, To increase tolerance to activity/condition/position, To improve performance and independence with ADL's, To decrease level of supervision to perform tasks, To improve ability of physical actions for home/community/work/leisure, To improve gait and locomotor functions, To improve health of tissue, To improve endurance, To improve balance and To improve safety with gait Therapeutic Exercise to Include: Strength training, Endurance training, Balance training, Coordination, Body mechanics, Postural training, Gait and locomotor t raining, Neuromotor development and Active ROM For the Purpose of:: To decrease pain, To increase ROM, To improve nutrient delivery to tissue, To improve muscle performance and motor function, To improve ability to perform ADL's, To increase tolerance to activity/condition/position, To improve performance and independence with ADL's, To decrease level of supervision to perform tasks, To improve ability of physical actions for home/community/work/leisure, To improve gait and locomotor functions and To improve safety with gait Functional Training to Include: Gait training For the Purpose of:: To improve gait and locomotor functions and To improve safety with gait Text: Thank you for the opportunity to evaluate your patient. For Medicare and Medicare HMO plans, please review the plan of care and approve it. It will need to be FAXED BACK to us at [phone] for Medicare purposes. For Medicare only, by signing this I certify the plan of care. Please let me know if there are questions or concerns regarding this plan of care. Physician Signature:_ Date:
--- NOTE | 2023-02-01 12:04 | HP.PTDCSUM ---
Discharge Summary D/C summary: It has been my pleasure to treat SALAZAR HUSTON referred by FIDEL Garcia, with the diagnosis of Concussion for a total of 11 visit(s). Discharge Date: 02/01/23 Please see the following information for a summary of their discharge status. Subjective Subjective: She is better. Has been taking the meds the neurologist had her take. She has a dull BURDICK right now but the meds help manage it overall. She sees the neurologist in 6 weeks. She thinks it helps her sleep. She has not been on the computer all weekend. She thinks it is related to computer work. She has no issue with noise and light and no dizziness. No balance issues. Seems sx are more BURDICK still from the concussion and still some memory. Pain BURDICK: Pain Intensity (Out of 10): 1 head and eye pressure: Pain Intensity (Out of 10): 4 Overall Improvement % Improvement: 100 Objective Objective/Function: CATSIB 120/120 VOR X 1 min Walking with vertical and horizontal head turns did not cause dizziness but just possible slight head pressure Goals Goal 1:: I HEP Goal Progress: Goal Met Goal 2:: Be able to score normal on the CATSIB Goal Progress: Goal Met Goal 3:: Be able to walk with head turns without feeling dizzy or nauseated/BURDICK Goal Progress: Goal Met Goal 4:: Be able to complete VOR (smooth pursuit and head and eyes together in standing X 30 seconds without any increase in BURDICK or dizziness Goal Progress: Goal Met Goal 5:: Be able to roll R and L in bed without having dizziness Goal Progress: Goal Met Plan Plan: DC PT at this time as she has met all her PT goals. She still has some BURDICK and slower recall but is working with neurologist. Pt to continue with VOR exercises. D/C Information Discharge Comments: DC PT d/c sentence: If there are questions or concerns regarding this patient's physical therapy, please feel free to call me at [phone]. Thank you for the referral of this patient. Sincerely, Radha Johnson, MPT Balance/Gait/Functional tests Balance/Special Test Scores CATSIB Score (Max score 120 seconds): 120 Dizziness Score: 4 Improvement % Improvement: 100
== END 2023-02-01 19:00 | disposition home or self-care (01) ==
LOC: PT 11:30
PROVIDERS: PCP Family Medicine; Referring Provider Physician Assistant Surgical; Visit Provider Physician Assistant Surgical
DX: S06.0XAD Concussion with loss of consciousness status unknown, subsequent encounter (principal)
CPT/HCPCS: 97110; 97161; 97530

== ENCOUNTER → 2023-08-24 | Outpatient (CLI) | payer OTHER, SELFPAY ==
--- NOTE | 2023-08-24 12:57 | US_ITS ---
INDICATION: POST MILAGROS BLEEDING EXAMINATION: Ultrasound US Pelvis Non OB Limited With Transvaginal Imaging TECHNIQUE: Transabdominal and transvaginal (for optimal evaluation of the adnexa) pelvic ultrasound was performed. Grayscale, spectral waveform, and color flow Doppler evaluation of the adnexa. COMPARISON: No relevant prior comparison study available FINDINGS: UTERUS: Anteverted. The uterus measures 7.6 x 4.1 x 3.6 cm. The uterus is heterogeneous. No focal mass is seen. The endometrial stripe measures 3 mm in AP diameter which is within normal limits. Nabothian cysts seen in the cervix. Echogenic structures are seen in the cervix could represent collapsed cysts or debris. RIGHT OVARY: Not visualized due to overlying bowel gas. LEFT OVARY: Not visualized due to overlying bowel gas. FREE FLUID: None. US/Pelvic w/ Transvaginal IMPRESSION: Nonvisualization of both ovaries. Small nabothian cyst in cervix with adjacent echogenic structures could represent debris. Follow-up exam might be helpful. Electronically Signed: Carlos Enrique Garcia MD at 11:06 EDT ,
== END | disposition home or self-care (01) ==
PROVIDERS: PCP Family Medicine; Referring Provider Family Medicine; Visit Provider Family Medicine
DX: N95.0 Postmenopausal bleeding (principal)
CPT/HCPCS: 76830; 76856

== ENCOUNTER → 2023-09-09 | Outpatient (CLI) | payer OTHER, SELFPAY ==
[2023-09-09 08:35] LABS: Absolute Lymphocyte Count 1.87 X10^3/uL (0.83-4.51); Basophil# 0.03 X10^3/uL; Basophil% 0.7 % (0-1); Eosinophil# 0.06 X10^3/uL; Eosinophils% 1.3 % (0-5); Hemoglobin 14.2 g/dL (12.0-15.0); Lymphocyte # 1.87 X10^3/ul (0.83-4.51); Lymphocyte % 41.2 % (19-41); Mean Corp Hgb Conc 32.3 g/dL (32-36); Mean Corpuscular Volume 96.1 fL (81-99); Mean Platelet Vol. 10.8 fl (6.2-12.0); Monocyte# 0.53 X10^3/uL; Monocyte% 11.7 % (0-10); NRBC Flagged by Analyzer 0 % (0-5); Neutrophil # 2.04 X10^3/uL (2.7-7.7); Neutrophil % 44.9 % (47-70); Platelet Count 205 K/mm3 (150-450); RBC Distribution Width CV 13.1 % (11.6-14.6); RBC Distribution Width SD 46.3 fl (35.1-43.9); Red Blood Count 4.58 M/mm3 (4.2-5.4); White Blood Count 4.5 K/mm3 (4.4-11.0)
[2023-09-09 09:29] LABS: ALB/GLOB Ratio 1.1 RATIO (0.9-2.4); AST(SGOT) 15 U/L (15-37); Alanine Aminotransfer ALT/SGPT 20 U/L (13-56); Albumin, Serum 3.9 g/dL (3.2-5.0); Alkaline Phosphatase 84 U/L (45-117); Anion Gap 4 (5-15); BUN 10 mg/dL (7-18); BUN/Creat Ratio 9.9 RATIO (10-20); Chloride 111 mmol/L (98-107); Cholesterol 251 mg/dL (200); Creatinine, Serum 1.01 mg/dL (0.55-1.02); EST Glomerular Filtration Rate 60 mL/min (>60); Est Glom Filt Rate - Afr Amer 73 mL/min (>60); Ferritin 34 ng/mL (8-252); Globulin 3.4 g/dL (2.2-4.2); Glucose 94 mg/dL (74-106); High Density Lipoprotein 66 mg/dL; Potassium 4.2 mmol/L (3.5-5.1); Protein, Total 7.3 g/dL (6.4-8.2); Sodium Level 140 mmol/L (136-145); Thyroid Stim Hormone (TSH) 1.54 uIU/mL (0.358-3.74); Triglycerides 126 mg/dL; Very Low Density Lipoprotein 25 mg/dL (5-40)
== END | disposition home or self-care (01) ==
LOC: LAB 07:44
PROVIDERS: PCP Family Medicine; Referring Provider Family Medicine; Visit Provider Family Medicine
DX: Z00.00 Encounter for general adult medical examination without abnormal findings (principal); E03.9 Hypothyroidism, unspecified; D64.9 Anemia, unspecified; E55.9 Vitamin D deficiency, unspecified
CPT/HCPCS: 36415; 80053; 80061; 82306; 82728; 84443; 85025

== ENCOUNTER → 2023-11-10 | Outpatient (CLI) | payer OTHER, SELFPAY ==
--- NOTE | 2023-11-10 07:55 | BI_ITS ---
MAMMOGRAPHY - BILATERAL SCREENING REASON FOR EXAM: Female, 57 years old. Routine annual screening examination. PERTINENT HISTORY: Grandmother with breast cancer. TECHNIQUE: Digital bilateral breast suzy (3D mammographic acquisition) in the CC and MLO projections. 2-D mediolateral oblique (MLO) and craniocaudad (CC) views of both breasts were obtained. CAD: Full Field Digital Mammography with Computer Added Detection was performed. COMPARISON: Comparison is made with prior study October 20, 2022 and October 17, 2021. FINDINGS: Breast Composition: There are scattered areas of fibroglandular density. There are no dominant masses or suspicious calcifications. No other significant abnormalities are identified. There has been no significant change since the prior study. BI/SCRN MAMM (CAD)W/SUZY BILAT IMPRESSION: Stable bilateral screening mammogram. Yearly follow-up mammogram recommended. (A) ASSESSMENT CATEGORY: BIRADS Category 1: Negative. A letter regarding these results will be sent to the patient by the facility within 30 days. Approximately 10% of breast cancers are not detected by mammography. A normal mammogram should not delay biopsy of a clinically suspicious abnormality. [id number] Electronically Signed: Sebas Cuellar MD at 9:32 EDT ,
== END | disposition home or self-care (01) ==
LOC: OPBI 07:54
PROVIDERS: PCP Family Medicine; Referring Provider Family Medicine; Visit Provider Family Medicine
DX: Z12.31 Encounter for screening mammogram for malignant neoplasm of breast (principal); Z80.3 Family history of malignant neoplasm of breast
CPT/HCPCS: 77063; 77067

== ENCOUNTER → 2023-12-02 | Outpatient (CLI) | payer OTHER, SELFPAY ==
--- NOTE | 2023-12-02 | EMB_PTH ---
PATIENT: SALAZAR HUSTON LOC: [facility] U#:[id number] AGE/SX: 57/F ROOM: RE12/02/[address]: DEDE Love : 1965 BED: DIS: 12/02/2023 SPEC #: [id number] RECD: 12/02/23 11:56 STATUS: ESTEVAN SHEILA #: [id number] SLADE: 12/02/23 00:[address]: Chelsy Woody NP DEPT: SURGICAL PATHOLOGY RECD BY: Carito Singletary ENTERED: 12/02/23 13:33 SP TYPE: ENDOM BX/C DARRELL DR: Dr. Marleni De Los Santos MD Tissues: Endometrium, NOS Procedures: Surgery Specimen Level IV HEADER OPERATION: Endometrial biopsy PRE-OP DIAGNOSIS: Abnormal uterine bleeding TISSUE SUBMITTED: Endometrial lining MICROSCOPIC DIAGNOSIS Endometrial biopsy: Fragments of benign endometrial epithelium and mucous. See comment. WOLFGANG/ 12/03/2023 COMMENT The findings are consistent with atrophic endometrium. Clinical correlation and appropriate follow up are necessary. MICROSCOPIC DESCRIPTION Slides are reviewed. GROSS DESCRIPTION Received is one container labeled with the patient's name and not further designated. The specimen consists of multiple irregular fragments of martinez mucoid tissue that in aggregate measure 2.0 x 0.5 x 0.1 cm. The specimen is totally submitted in one cassette. WOLFGANG/ 12/02/2023 TC:4 CPT:15989
== END | disposition home or self-care (01) ==
LOC: LABSPEC 12:41
PROVIDERS: PCP Family Medicine; Referring Provider Nurse Practitioner Women's Health; Visit Provider Nurse Practitioner Women's Health
DX: N93.9 Abnormal uterine and vaginal bleeding, unspecified (principal)
CPT/HCPCS: 88305

== ENCOUNTER → 2024-08-17 | Outpatient (CLI) | payer OTHER, SELFPAY ==
[2024-08-17 09:40] LABS: Free T3 2.7 pg/mL (2.18-3.98)
== END | disposition home or self-care (01) ==
LOC: LAB 07:32
PROVIDERS: PCP Family Medicine; Referring Provider Family Medicine; Visit Provider Family Medicine
DX: E03.9 Hypothyroidism, unspecified (principal)
CPT/HCPCS: 36415; 84439; 84443; 84481

== ENCOUNTER → 2024-11-13 | Outpatient (CLI) | payer OTHER, SELFPAY ==
--- NOTE | 2024-11-13 10:30 | BI_ITS ---
EXAM: SCRN MAMM (CAD)W/SUZY BILAT DATE: 11/13/2024 CLINICAL HISTORY: F, Age 58 y/o , SCREEN FOR BREAST CANCER BREAST CANCER RISK ASSESSMENT: Not assessed. TECHNIQUE: Bilateral screening digital breast tomosynthesis with 2D and 3D images. Computer aided detection. COMPARISON: Prior exam(s) dated November 10, 2023.. FINDINGS: TISSUE DENSITY: The breast tissue is composed of scattered area of fibroglandular density. Bilateral Breast Mammographic Findings: No significant masses, calcifications or other abnormalities are identified. No suspicious masses, areas of developing architectural distortion, or suspicious calcifications. There has been no significant interval change. BI/SCRN MAMM (CAD)W/SUZY BILAT IMPRESSION: OVERALL FINAL ASSESSMENT: BIRADS 1 NEGATIVE RECOMMENDATION: Routine annual follow-up in 1 Year A letter with findings and recommendations will be mailed to the patient. Reading Location: [place] [id number]
== END | disposition home or self-care (01) ==
LOC: OPBI 10:23
PROVIDERS: PCP Family Medicine; Referring Provider Nurse Practitioner Women's Health; Visit Provider Nurse Practitioner Women's Health
DX: Z12.31 Encounter for screening mammogram for malignant neoplasm of breast (principal)
CPT/HCPCS: 77063; 77067

== ENCOUNTER 2025-02-28 14:39 | Outpatient (RCR) | payer OTHER, SELFPAY | END 2025-03-06 23:59 | LOC: NS 14:39 | PROVIDERS: PCP Family Medicine; Referring Provider Nurse Practitioner Women's Health; Visit Provider Nurse Practitioner Women's Health | DX: Z71.3 Dietary counseling and surveillance (principal); E66.9 Obesity, unspecified; R63.5 Abnormal weight gain; Z68.29 Body mass index [BMI] 29.0-29.9, adult | CPT/HCPCS: 97802 ==

== ENCOUNTER 2025-04-16 16:05 | Outpatient (RCR) | payer OTHER, SELFPAY | END 2025-05-06 23:59 | LOC: NS 16:05 | PROVIDERS: PCP Family Medicine; Referring Provider Nurse Practitioner Women's Health; Visit Provider Nurse Practitioner Women's Health | DX: Z71.3 Dietary counseling and surveillance (principal); E66.9 Obesity, unspecified; Z68.29 Body mass index [BMI] 29.0-29.9, adult | CPT/HCPCS: 97803 ==

== ENCOUNTER 2025-05-23 15:51 | Outpatient (RCR) | payer OTHER, SELFPAY | END 2025-06-06 23:59 | LOC: NS 15:51 | PROVIDERS: PCP Family Medicine; Referring Provider Nurse Practitioner Women's Health; Visit Provider Nurse Practitioner Women's Health | DX: Z71.3 Dietary counseling and surveillance (principal); E66.9 Obesity, unspecified; Z68.29 Body mass index [BMI] 29.0-29.9, adult | CPT/HCPCS: 97803 ==